=== PATIENT | male | born 1975 | race Caucasian/White ===

== ENCOUNTER 2019-07-11 09:35 | Emergency (ER) | payer BC, SELFPAY ==
--- NOTE | 2019-07-11 09:39 | ED.SKABFB ---
HPI - Skin/Abscess/Foreign Bdy General Stated complaint: Poison [place] Time Seen by Provider: 07/11/19 09:50 Source: patient and RN notes reviewed Mode of arrival: ambulatory Limitations: no limitations History of Present Illness HPI narrative: 43-year-old male presents with concern for rash, possible poison oak. He reports he was exposed to poison oak while pulling timothy, approximately 1 week ago. Reports using calamine lotion with little relief. 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 He reports rash on bilateral forearms that has started to move to his face. He denies any shortness of breath, swelling tongue, swelling lips. complaint: rash Related Data Allergies Allergy/AdvReac Type Severity Reaction Status Date / Time No Known Allergies Allergy Verified 07/11/19 09:59 Review of Systems Review of Systems: Narrative: CONSTITUTIONAL: Denies malaise, chills, sweats, or fever. EYES: Denies visual changes, redness, or discharge. ENT: Denies rhinorrhea, congestion, sinus pain, otalgia or sore throat. CARDIOVASCULAR: Denies chest pain, palpitations, or edema. RESPIRATORY: Denies cough or dyspnea. GASTROINTESTINAL: Denies abdominal pain, nausea, vomiting, diarrhea SKIN: Reports itchy rash on forearms, face MUSCULOSKELETAL: Denies myalgia. NEUROLOGIC: Denies headache. All systems reviewed & are unremarkable except as noted in HPI and below PMFSH Comments At time of signature, agree with nursing past medical, surgical, social and family history. There is no relevant family history pertinent to the presenting complaint Exam Narrative: Exam Narrative: GENERAL: Well-appearing, well-nourished, and in no acute distress. HEAD: Normocephalic EYES: PERRLA, conjunctivae clear ENT: Nares clear. Mucous membranes moist. Oropharynx without edema, erythema or lesions. NECK: Supple. CHEST: No respiratory distress. Clear to auscultation. No bony deformities, no asymmetry. Speaks in full sentences. HEART: Regular rate and rhythm. No murmur heard. SKIN: Warm, dry. Small scaly patches of erythema with minimal vesicles noted to bilateral forearms, less than 3 cm diameter, total of 4 patches. No rash noted to face. NEURO: Alert and oriented x3. PSYCH: Normal mood and affect Course Course Emergency Course: Patient is aware of diagnosis, understands and agrees to treatment plan. Anticipatory guidance given. Patient agrees to follow-up as directed and is aware of reasons to seek care at the emergency department. Portions of this record may have been created with voice recognition software Vital Signs Vital signs: Vital Signs Temperature 99 F 07/11/19 09:40 Pulse Rate 75 07/11/19 09:40 Respiratory Rate 16 07/11/19 09:40 Blood Pressure 123/84 07/11/19 09:40 Pulse Oximetry 98 07/11/19 09:40 Temperature 99 F 07/11/19 09:40 Pulse Rate 75 07/11/19 09:40 Respiratory Rate 16 07/11/19 09:40 Blood Pressure 123/84 07/11/19 09:40 Pulse Oximetry 98 07/11/19 09:40 Reviewed. Pt has been instructed to follow up with his primary care provider within the next week regarding his elevated blood pressure today. MDM - Skin/Abscess/Foreign Bdy MDM Narrative Medical decision making narrative: Does not appear at this time to be erythema multiforme, bullous, SJS, TEN; no evidence at this time to suggest RMSF, endocarditis or Lyme disease; patient looks well, nontoxic and is tolerating oral intake; no neurologic signs or symptoms; no headache, photophobia or neck pain; afebrile; appropriate for initial outpatient treatment; discussed the importance of follow-up, patient agrees; question, viral exanthema, contact dermatitis, allergic dermatitis, eczema, urticaria. No soft palate or uvula edema, no tongue, lip edema or other mucosal involvement, no respiratory compromise, no stridor, no wheezing, no wheezing, no history of syncope, no hypotension, no nausea, vomiting, or diarrhea. Instructed patient to go to nearest ER immediately
[2019-07-11 09:40] VITALS: BP 123/84; PULSE 75; RESP 16; TEMP 37.2; O2SAT 98
[2019-07-11] MEDS: methylPREDNISolone SOD SUCC 125 MG VIAL IM (10:05)
== END 2019-07-11 10:25 | disposition home or self-care (01) ==
PROVIDERS: Emergency Provider Nurse Practitioner; PCP Family Medicine
DX: L25.9 Unspecified contact dermatitis, unspecified cause (principal); R03.0 Elevated blood-pressure reading, without diagnosis of hypertension
CPT/HCPCS: 96372; 99203; G0463; J2930

== ENCOUNTER 2021-06-29 07:24 | Outpatient (CLI) | payer BC, SELFPAY ==
[2021-06-30 09:56] LABS: Hematocrit 51.2 % (42.0-52.0); Hemoglobin 16.8 g/dL (14.0-18.0); Mean Corpuscular HGB Conc 32.8 g/dl (32-36); Mean Corpuscular Hemoglobin 30.7 pg (26-34); Mean Corpuscular Volume 93.4 fl (80-100); Mean Platelet Volume 9.7 fl (7.4-10.4); Platelet Count Result 225 k/mm3 (150-375); Red Blood Count 5.48 M/mm3 (4.6-6.20); Red Cell Distribution Width 13.5 % (11.5-14.5); White Blood Count 6.1 K/mm3 (4.5-10.0)
[2021-06-30 14:54] LABS: Alanine Aminotransferase 36 U/L (6-50); Albumin Level 4.4 g/dL (3.5-5.1); Alkaline Phosphatase 67 U/L (38-126); Anion Gap 8 mmol/L (8-16); Aspartate Amino Transferase 32 U/L (17-59); Bilirubin,Total 0.7 mg/dL (0.2-1.3); Blood Urea Nitrogen 21 mg/dL (9-20); Calcium 8.8 mg/dL (8.4-10.2); Carbon Dioxide 24 mmol/L (22-30); Chloride 103 mmol/L (98-107); Cholesterol 212 mg/dL (0-200); Glucose 107 mg/dL (65-110); HDL Direct 69 mg/dL; Potassium 4.3 mmol/L (3.4-5.0); Sodium 135 mmol/L (137-145); Triglycerides 86 mg/dL (<150)
[2021-06-30 16:12] LABS: LDL Cholesterol Direct 98 mg/dL
[2021-06-30 16:16] LABS: Estimated Glomerular Filt Rate 2
[2021-06-30 16:32] LABS: Prostate Specific Antigen 0.6 ng/mL (< OR = 4.0)
[2021-07-04 10:14] LABS: Testosterone Free 117.3 pg/mL (35.0-155.0); Testosterone Total 747 ng/dL (250-1100)
== END 2021-06-29 07:25 | disposition home or self-care (01) ==
PROVIDERS: PCP Family Medicine; Visit Provider Family Medicine
DX: Z00.00 Encounter for general adult medical examination without abnormal findings (principal); E29.1 Testicular hypofunction; R53.83 Other fatigue; G47.19 Other hypersomnia
CPT/HCPCS: 36415; 80053; 80061; 84153; 84402; 84403; 85027; G0103

== ENCOUNTER 2021-07-07 07:27 | Outpatient (CLI) | payer BC, SELFPAY ==
[2021-07-07 18:57] LABS: Anion Gap 7 mmol/L (8-16); Blood Urea Nitrogen 27 mg/dL (9-20); Calcium 9.4 mg/dL (8.4-10.2); Carbon Dioxide 27 mmol/L (22-30); Chloride 101 mmol/L (98-107); Estimated Glomerular Filt Rate > 60; Glucose 76 mg/dL (65-110); Potassium 4.3 mmol/L (3.4-5.0); Sodium 135 mmol/L (137-145)
== END 2021-07-07 07:28 | disposition home or self-care (01) ==
PROVIDERS: PCP Family Medicine; Visit Provider Family Medicine
DX: R79.89 Other specified abnormal findings of blood chemistry (principal)
CPT/HCPCS: 99199; 36415; 80048

== ENCOUNTER 2021-12-21 12:09 | Outpatient (CLI) | payer BC, SELFPAY ==
[2021-12-22 06:49] LABS: Rapid Plasma Reagin Non-Reactive (NonReactive)
[2021-12-26 10:56] LABS: HIV 1 2 Ag Ab 4th Gen w Rflxs Non-reactive (Non-reactive)
== END 2021-12-21 12:10 | disposition home or self-care (01) ==
PROVIDERS: PCP Family Medicine; Visit Provider Family Medicine
DX: Z71.1 Person with feared health complaint in whom no diagnosis is made (principal)
CPT/HCPCS: 36415; 86592; 87389

== ENCOUNTER 2022-02-06 07:24 | Outpatient (CLI) | payer BC, SELFPAY ==
[2022-02-06 19:05] LABS: Cholesterol 203 mg/dL (0-200); HDL Direct 51 mg/dL; Triglycerides 204 mg/dL (<150)
[2022-02-06 19:07] LABS: Basophils Percent Auto 0.2 % (0.2-1.2); Eosinophils Absolute Auto 0.1 K/mm3 (0-0.3); Eosinophils Percent Auto 2.3 % (0-4.4); Hematocrit 47.5 % (42.0-52.0); Hemoglobin 16.8 g/dL (14.0-18.0); Lymphocytes Absolute Auto 1.13 K/mm3 (0.9-3.2); Lymphocytes Percent Auto 21.6 % (18.3-44.2); Mean Corpuscular HGB Conc 35.4 g/dl (32-36); Mean Corpuscular Hemoglobin 30.2 pg (26-34); Mean Corpuscular Volume 85.3 fl (80-100); Mean Platelet Volume 9.8 fl (7.4-10.4); Monocytes Absolute Auto 0.4 K/mm3 (0.1-0.6); Neutrophils Absolute Auto 3.6 K/mm3 (1.3-6.7); Neutrophils Percent Auto 67.9 % (45.5-73.1); Platelet Count Result 238 k/mm3 (150-375); Red Blood Count 5.57 M/mm3 (4.6-6.20); Red Cell Distribution Width 12.8 % (11.5-14.5); White Blood Count 5.2 K/mm3 (4.5-10.0)
[2022-02-06 19:16] LABS: LDL Cholesterol Direct 77 mg/dL
[2022-02-10 21:27] LABS: Estradiol, Ultrasensitive 14 pg/mL (< OR = 29)
[2022-02-11 21:01] LABS: Testosterone Free 53.6 pg/mL (35.0-155.0); Testosterone Total 443 ng/dL (250-1100)
== END 2022-02-06 07:25 | disposition home or self-care (01) ==
LOC: ANHBWCLAB 07:26
PROVIDERS: PCP Family Medicine; Visit Provider Family Medicine
DX: Z00.00 Encounter for general adult medical examination without abnormal findings (principal); E29.1 Testicular hypofunction
CPT/HCPCS: 36415; 80061; 82670; 84402; 84403; 85025

== ENCOUNTER 2022-11-30 07:05 | Outpatient (CLI) | payer BC, SELFPAY ==
[2022-12-03 16:24] LABS: Testosterone Free 158.6 pg/mL (35.0-155.0); Testosterone Total 979 ng/dL (250-1100)
== END 2022-11-30 07:06 | disposition home or self-care (01) ==
PROVIDERS: PCP Family Medicine; Visit Provider Family Medicine
DX: E29.1 Testicular hypofunction (principal); H10.10 Acute atopic conjunctivitis, unspecified eye; J30.9 Allergic rhinitis, unspecified
CPT/HCPCS: 36415; 84402; 84403

== ENCOUNTER 2022-12-18 13:36 | Emergency (ER) | payer BC, SELFPAY ==
--- NOTE | ~2022-12-18 | XR_ITS ---
EXAMINATION: XR chest 1V DATE: 12/18/2022 14:20 INDICATION: Shortness of breath TECHNIQUE: frontal and lateral views of the chest were obtained. COMPARISON: None FINDINGS: Linear band of likely discoid atelectasis at the lateral left lower lung zone. No other airspace opac ities, pulmonary edema, pleural effusion or pneumothorax. The cardiomediastinal silhouette is normal. Visualized bones and soft tissues are unremarkable. IMPRESSION: 1. Mild linear discoid atelectasis in the left lower lung zone. No other acute cardiopulmonary diseas e. Reviewed, dictated and finalized at location A. IMPRESSION: 1. Mild linear discoid atelectasis in the left lower lung zone. No other acute cardiopulmonary disease.
[2022-12-18 13:41] VITALS: BP 154/89; PULSE 76; RESP 16; TEMP 36.4; O2SAT 99
--- NOTE | 2022-12-18 13:44 | ECG_ITS ---
Measurements Intervals [place] Rate: 74 P: 14 [place]: 154 QRS: -33 QRSD: 97 T: 18 QT: 375 QTc: 417 Interpretive Statements SINUS RHYTHM LEFT AXIS DEVIATION PATTERN CONSISTENT WITH PULMONARY DISEASE BASELINE ARTIFACT- V5 BORDERLINE ECG NO PREVIOUS ECG AVAILABLE FOR COMPARISON Electronically Signed On 12-20-2022 6:31:27 CDT by Oh Montalvo D.O.
--- NOTE | 2022-12-18 13:46 | ED.GENADULT ---
HPI - General Adult General Chief complaint: Unspecified Stated complaint: SOB, dizzy Time Seen by Provider: 12/18/22 19:26 History of Present Illness HPI narrative: Anatoly Rosenthal is a 47 y/o female without any known PMHx who presents with reports of feeling light headed/ dizzy / SOB that started yesterday, he also reports of chest pain when he tries to take a deep breath. He also states that he feels like he is retaining fluid and thinks he has gained about 10LBs in the last 2 weeks. Related Data Home Medications Medication Instructions Recorded Confirmed ascorbic acid (vitamin C) 1,000 mg 1 gm PO DAILY 10/02/19 07/07/21 tablet multivitamin 1 tablet PO DAILY 10/02/19 07/07/21 Allergies Allergy/AdvReac Type Severity Reaction Status Date / Time No Known Allergies Allergy Verified 12/18/22 13:44 [facility] Surgical History Surgical History H/O vasectomy Family History Family History Sibling Cancer Social History Social History Smoking status: Former smoker Tobacco type: cigarettes Alcohol intake: current Substance use type: does not use Lack of Transportation: No Lack of Food: Never True Current Housing: I Have Housing Concerned About Future Housing: No Difficulty Paying Gas/Electric Bills: No Difficulty Paying for Meds: No Currently Unemployed: No Education: High School Diploma/GED Difficulty w/ Childcare or Family Care: No Course Vital Signs Vital signs: Vital Signs Temperature 36.4 C 12/18/22 13:41 Pulse Rate 76 12/18/22 13:41 Respiratory Rate 16 12/18/22 13:41 Blood Pressure 154/89 H 12/18/22 13:41 Pulse Oximetry 99 12/18/22 13:41 Oxygen Delivery Room Air 12/18/22 13:41 Temperature 36.4 C 12/18/22 13:41 Pulse Rate 70 12/18/22 20:07 Respiratory Rate 19 12/18/22 20:07 Blood Pressure 148/79 H 12/18/22 20:07 Pulse Oximetry 98 12/18/22 20:07 Oxygen Delivery Room Air 12/18/22 13:41 Medical Decision Making Vital Signs Vital Signs: Vital Signs Temperature 36.4 C 12/18/22 13:41 Pulse Rate 76 12/18/22 13:41 Respiratory Rate 16 12/18/22 13:41 Blood Pressure 154/89 H 12/18/22 13:41 Pulse Oximetry 99 12/18/22 13:41 Oxygen Delivery Room Air 12/18/22 13:41 Temperature 36.4 C 12/18/22 13:41 Pulse Rate 70 12/18/22 20:07 Respiratory Rate 19 12/18/22 20:07 Blood Pressure 148/79 H 12/18/22 20:07 Pulse Oximetry 98 12/18/22 20:07 Oxygen Delivery Room Air 12/18/22 13:41 Lab Data 12/18/22 13:52 12/18/22 13:52 Labs: Lab Results 12/18/22 12/18/22 Range/Units 13:52 18:12 WBC 5.7 (4.5-10.0) K/mm3 RBC 5.82 (4.6-6.20) M/mm3 Hgb 17.3 (14.0-18.0) g/dL Hct 49.9 (42.0-52.0) % MCV 85.7 (80-100) fl MCH 29.7 (26-34) pg MCHC 34.7 (32-36) g/dl RDW 12.9 (11.5-14.5) % Plt Count 204 (150-375) k/mm3 MPV 8.8 (7.4-10.4) fl Immature Gran % (Auto) 0.2 (0-0.5) % Neut % (Auto) 60.3 (45.5-73.1) % Lymph % (Auto) 26.0 (18.3-44.2) % Wallace % (Auto) 9.4 H (2.6-8.5) % Eos % (Auto) 3.8 (0-4.4) % Baso % (Auto) 0.3 (0.2-1.2) % Lymph # (Auto) 1.49 (0.9-3.2) K/mm3 Wallace # (Auto) 0.5 (0.1-0.6) K/mm3 Eos # (Auto) 0.2 (0-0.3) K/mm3 Baso # (Auto) 0.0 (0.0-0.1) K/mm3 Abs Immat Gran (auto) 0.01 (0.00-0.031) K/mm3 Absolute Neuts (auto) 3.5 (1.3-6.7) K/mm3 Absolute Nucleated RBC 0.0 (0.0-0.012) K/mm3 Nucleated RBC % 0.0 (0.0-0.2) % D-Dimer 0.32 (<0.48) ug/mL Sodium 133 L (137-145) mmol/L Potassium 4.0 (3.4-5.0) mmol/L Chloride 102 (98-107) mmol/L Carbon Dioxide 23 (22-30) mmol/L Anion Gap 8 (8-16) mmol/L BUN 20 (9-20) mg/dL Creatinine 0.80 (0.7-1.3) mg/dL Estim Creat Clear Calc 100 ml/min Estimated GF
[2022-12-18 13:58] LABS: Basophils Percent Auto 0.3 % (0.2-1.2); Eosinophils Absolute Auto 0.2 K/mm3 (0-0.3); Eosinophils Percent Auto 3.8 % (0-4.4); Hematocrit 49.9 % (42.0-52.0); Hemoglobin 17.3 g/dL (14.0-18.0); Immature Granulocyte Absolute 0.01 K/mm3 (0.00-0.031); Immature Granulocyte Percent A 0.2 % (0-0.5); Lymphocytes Absolute Auto 1.49 K/mm3 (0.9-3.2); Mean Corpuscular HGB Conc 34.7 g/dl (32-36); Mean Corpuscular Hemoglobin 29.7 pg (26-34); Mean Corpuscular Volume 85.7 fl (80-100); Mean Platelet Volume 8.8 fl (7.4-10.4); Monocytes Absolute Auto 0.5 K/mm3 (0.1-0.6); Monocytes Percent Auto 9.4 % (2.6-8.5); Neutrophils Absolute Auto 3.5 K/mm3 (1.3-6.7); Neutrophils Percent Auto 60.3 % (45.5-73.1); Platelet Count Result 204 k/mm3 (150-375); Red Blood Count 5.82 M/mm3 (4.6-6.20); Red Cell Distribution Width 12.9 % (11.5-14.5); White Blood Count 5.7 K/mm3 (4.5-10.0)
--- NOTE | 2022-12-18 13:58 | PC.NURSE ---
Paris, nurse, at [facility] in [place] verbalized over the phone that patient's COVID/Flu swab at their facility today was NEGATIVE. ED MARISOL made aware. VORB to cancel COVID swab ordered here.
[2022-12-18 14:08] LABS: Alanine Aminotransferase 48 U/L (6-50); Albumin Level 4.7 g/dL (3.5-5.1); Alkaline Phosphatase 61 U/L (38-126); Anion Gap 8 mmol/L (8-16); Aspartate Amino Transferase 39 U/L (17-59); Bilirubin,Total 0.7 mg/dL (0.2-1.3); Blood Urea Nitrogen 20 mg/dL (9-20); Calcium 9.5 mg/dL (8.4-10.2); Carbon Dioxide 23 mmol/L (22-30); Chloride 102 mmol/L (98-107); Estimated CRCL calculation 100 ml/min; Estimated Glomerular Filt Rate > 60; Glucose 95 mg/dL (65-110); Sodium 133 mmol/L (137-145)
[2022-12-18 14:19] LABS: NT Pro B Type Natriuretic Pept < 20 pg/mL (19.9-100); Troponin I < 0.012 ng/mL (0.000-0.034)
[2022-12-18 14:20] LABS: D Dimer 0.32 ug/mL (<0.48)
[2022-12-18 18:50] LABS: Troponin I 0.013 ng/mL (0.000-0.034)
--- NOTE | 2022-12-18 19:30 | ED.GENADULT ---
HPI - General Adult General Chief complaint: Unspecified Stated complaint: SOB, dizzy Time Seen by Provider: 12/18/22 19:26 History of Present Illness HPI narrative: This is a 47-year-old male presenting to ED with multiple complaints. Patient says her on since Sunday he has been experience combination of chest pain shortness of breath and intermittent dizziness. He describes the chest pain is an achy pain across his chest that is worse with deep breaths. He has never had pain like this before. It is not exacerbated by exercise. no nausea vomiting or diaphoresis. Patient said over the weekend he had an episode of dyspnea while he was speaking to someone. Those symptoms have since resolved. He also says that he is occasionally getting a little dizzy when he stands up/moves around. he is not currently having these symptoms. Patient notes that he is under a massive amount of stress. at home. He says that all of his symptoms seem to be worsened by stress. He has never been diagnosed with anxiety or depression. Related Data Home Medications Medication Instructions Recorded Confirmed ascorbic acid (vitamin C) 1,000 mg 1 gm PO DAILY 10/02/19 07/07/21 tablet multivitamin 1 tablet PO DAILY 10/02/19 07/07/21 Allergies Allergy/AdvReac Type Severity Reaction Status Date / Time No Known Allergies Allergy Verified 12/18/22 13:44 [facility] Surgical History Surgical History H/O vasectomy Family History Family History Sibling Cancer Social History Social History Smoking status: Former smoker Tobacco type: cigarettes Alcohol intake: current Substance use type: does not use Lack of Transportation: No Lack of Food: Never True Current Housing: I Have Housing Concerned About Future Housing: No Difficulty Paying Gas/Electric Bills: No Difficulty Paying for Meds: No Currently Unemployed: No Education: High School Diploma/GED Difficulty w/ Childcare or Family Care: No Exam Narrative: APPEARANCE: No apparent distress. pleasant and polite Head: atraumatic. EYES: EOMI, NOSE: Atraumatic NECK: Trachea midline RESPIRATORY: No increased rate of breathing , clear to auscultation CARDIOVASCULAR: RRR, no peripheral edema ABDOMINAL: Non-distended soft nontender MUSCULOSKELETAl: No obvious deformities NEURO: Alert. Moving 4/4 extremities SKIN:: Warm, dry. Normal color PSYCHIATRIC: Normal affect Course Vital Signs Vital signs: Vital Signs Temperature 97.6 F 12/18/22 13:41 Pulse Rate 76 12/18/22 13:41 Respiratory Rate 16 12/18/22 13:41 Blood Pressure 154/89 H 12/18/22 13:41 Pulse Oximetry 99 12/18/22 13:41 Oxygen Delivery Room Air 12/18/22 13:41 Temperature 97.6 F 12/18/22 13:41 Pulse Rate 76 12/18/22 13:41 Respiratory Rate 16 12/18/22 13:41 Blood Pressure 154/89 H 12/18/22 13:41 Pulse Oximetry 99 12/18/22 13:41 Oxygen Delivery Room Air 12/18/22 13:41 Medical Decision Making MDM Narrative Medical decision making narrative: -Course: 47-year-old male presenting with multiple symptoms. His workup including troponin D-dimer BNP chest x-ray and EKG were all negative. By the time I interviewed the patient he says his symptoms have resolved he is ready to go home. Patient has been discharged with instructions to follow-up with his primary care physician for further management. 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 He lives with his and step children. -Independent interpretation of studies: Independent EKG interpretation: Rhythm [sinus], Rate 74, [place] -[leftward], [place] -[normal], QRS [narrow], QTC [khris
[2022-12-18 20:07] VITALS: BP 148/79; PULSE 70; RESP 19; O2SAT 98
== END 2022-12-18 20:08 | disposition home or self-care (01) ==
PROVIDERS: Nurse Practitioner Family; Emergency Provider Emergency Medicine; PCP Family Medicine
DX: R07.9 Chest pain, unspecified (principal); R06.00 Dyspnea, unspecified; F43.9 Reaction to severe stress, unspecified; Z87.891 Personal history of nicotine dependence
CPT/HCPCS: 36415; 71045; 80053; 83880; 84484; 85025; 85380; 93005; 99284

== ENCOUNTER 2023-06-12 07:06 | Outpatient (CLI) | payer BC, SELFPAY ==
[2023-06-12 18:58] LABS: Hematocrit 49.2 % (42.0-52.0); Hemoglobin 16.4 g/dL (14.0-18.0); Mean Corpuscular HGB Conc 33.3 g/dl (32-36); Mean Corpuscular Hemoglobin 29.7 pg (26-34); Mean Platelet Volume 9.9 fl (7.4-10.4); Platelet Count Result 198 k/mm3 (150-375); Red Blood Count 5.53 M/mm3 (4.6-6.20); Red Cell Distribution Width 13.3 % (11.5-14.5); White Blood Count 3.9 K/mm3 (4.5-10.0)
[2023-06-12 19:06] LABS: Alanine Aminotransferase 34 U/L (6-50); Albumin Level 4.5 g/dL (3.5-5.1); Alkaline Phosphatase 63 U/L (38-126); Anion Gap 7 mmol/L (4-12); Aspartate Amino Transferase 48 U/L (17-59); Bilirubin,Total 0.8 mg/dL (0.2-1.3); Blood Urea Nitrogen 22 mg/dL (9-20); Calcium 9.6 mg/dL (8.4-10.2); Carbon Dioxide 25 mmol/L (22-30); Chloride 106 mmol/L (98-107); Estimated Glomerular Filt Rate > 60; Glucose 101 mg/dL (65-110); Potassium 4.2 mmol/L (3.4-5.0); Sodium 138 mmol/L (137-145)
[2023-06-12 19:31] LABS: Prostate Specific Antigen 0.6 ng/mL (< OR = 4.0)
[2023-06-16 17:04] LABS: Testosterone Free 39.4 pg/mL (35.0-155.0); Testosterone Total 353 ng/dL (250-1100)
== END 2023-06-12 07:07 | disposition home or self-care (01) ==
LOC: ANHBWCLAB 07:08
PROVIDERS: PCP Family Medicine; Visit Provider Family Medicine
DX: Z00.00 Encounter for general adult medical examination without abnormal findings (principal); E29.1 Testicular hypofunction; G47.19 Other hypersomnia; R53.83 Other fatigue; Z12.5 Encounter for screening for malignant neoplasm of prostate
CPT/HCPCS: 36415; 80053; 84153; 84402; 84403; 85027; G0103

== ENCOUNTER 2023-12-05 00:41 | Inpatient (IN) | payer BC, SELFPAY ==
[2023-12-05] VITALS (16 sets, daily range): BP systolic 95–133; BP diastolic 67–97; PULSE 73–103; RESP 12–22; TEMP 36.1–38.2; O2SAT 94–100
--- NOTE | ~2023-12-05 | CT_ITS ---
CT of the Abdomen and Pelvis: Indication: Abdominal pain Technique: 2.5 mm axial scans were obtained through the abdomen and pelvis following intravenous adm inistration of 100 cc of Omnipaque 350. Dose reduction technique was used on this scan by utilizing a utomated exposure control and iterative reconstruction technique. The dose-length product (DLP) was 5 31.89 mGy-cm. Findings: Scans through the lung bases are unremarkable. The liver, spleen, pancreas, gallbladder, adrenals and kidneys are within normal limits. No evidence of aortic aneurysm. No lymphadenopathy. No bowel obstruction. Appendix is dilated to 14 mm with extensive periappendiceal inflammatory change . No abscess or free air.. Images through the pelvis were performed. Urinary bladder unremarkable. Prostate gland and seminal ve sicles are unremarkable. No ascites. Impression: Acute appendicitis, as detailed above. No abscess or free air. Reviewed, dictated and finalized at [facility]. Impression: Acute appendicitis, as detailed above. No abscess or free air.
--- NOTE | 2023-12-05 01:02 | ECG_ITS ---
Test Date: 2023-12-05 01:05:12 Measurements Intervals [place] Rate: 92 P: 9 VA: 141 QRS: -40 QRSD: 103 T: 32 QT: 354 QTc: 438 Interpretive Statements SINUS RHYTHM MARKED LEFT AXIS DEVIATION [QRS AXIS < -30] INCOMPLETE RIGHT BUNDLE BRANCH BLOCK [90+ ms QRS DURATION, TERMINAL R IN V1/V2, 40+ ms S IN I/aVL/V4/V5/V6] No previous ECG available for comparison Electronically Signed On 12-05-2023 09:47:53 CDT by Tk Zee M.D.
[2023-12-05] MEDS: ONDANSETRON INJ 4 MG/2 ML VIAL IV PUSH ×2 (01:07→06:38)
[2023-12-05] MEDS: MORPHINE SULFATE (*CRX) 4 MG/ML INJ IV PUSH ×4 (01:07→10:52)
[2023-12-05 01:11] LABS: Basophils Percent Auto 0.3 % (0.2-1.2); Eosinophils Absolute Auto 0.1 K/mm3 (0-0.3); Eosinophils Percent Auto 0.8 % (0-4.4); Hematocrit 48.6 % (42.0-52.0); Hemoglobin 17.5 g/dL (14.0-18.0); Immature Granulocyte Absolute 0.06 K/mm3 (0.00-0.031); Immature Granulocyte Percent A 0.5 % (0-0.5); Lymphocytes Absolute Auto 1.04 K/mm3 (0.9-3.2); Mean Platelet Volume 9.2 fl (7.4-10.4); Monocytes Absolute Auto 0.8 K/mm3 (0.1-0.6); Monocytes Percent Auto 7.2 % (2.6-8.5); Neutrophils Absolute Auto 9.5 K/mm3 (1.3-6.7); Neutrophils Percent Auto 82.2 % (45.5-73.1); Platelet Count Result 222 k/mm3 (150-375); Red Blood Count 5.65 M/mm3 (4.6-6.20); Red Cell Distribution Width 12.5 % (11.5-14.5); White Blood Count 11.5 K/mm3 (4.5-10.0)
--- NOTE | 2023-12-05 01:12 | ED.ABDPAIN ---
HPI - Abdominal Pain General Chief Complaint: Abdominal Pain Stated Complaint: abdominal pain Time Seen by Provider: 12/05/23 00:47 History of Present Illness HPI narrative: Patient is a 48-year-old male who presents to the emergency department this evening complaining of generalized abdominal pain which started around 430 this afternoon. Patient states that approximately 2 weeks ago he noticed that he was not having frequent bowel movements and thought that he might be constipated so he started taking laxatives and doing home enema as with no improvement of his symptoms. Patient states that he will have a very small bowel movement every once in a while which is unusual for him. Patient admits to nausea but denies any vomiting episodes, denies any chest pain or shortness of breath, denies any fevers or chills. Patient also denies any similar symptoms in the past. There are no additional modifying, alleviating, or precipitating factors at this time. Related Data Home Medications Medication Instructions Recorded Confirmed ascorbic acid (vitamin C) 1,000 mg 1 gm PO DAILY 10/02/19 07/07/21 tablet multivitamin 1 tablet PO DAILY 10/02/19 07/07/21 Allergies Allergy/AdvReac Type Severity Reaction Status Date / Time No Known Allergies Allergy Verified 12/05/23 01:32 Review of Systems Review of Systems: All systems are reviewed and are negative unless stated otherwise in the HPI. [facility] Surgical History Surgical History H/O vasectomy Family History Family History Sibling Cancer Social History Social History Smoking status: Former smoker Tobacco type: cigarettes Alcohol intake: current Substance use type: does not use Lack of Transportation: No Lack of Food: Never True Current Housing: I Have Housing Concerned About Future Housing: No Difficulty Paying Gas/Electric Bills: No Difficulty Paying for Meds: No Currently Unemployed: No Education: High School Diploma/GED Difficulty w/ Childcare or Family Care: No Exam Narrative: General: Alert, awake, afebrile, in severe distress. HEENT: PERRL, no rhinorrhea, no post nasal drip, oropharynx clear. Cardiovascular: Regular rate and rhythm, no murmurs, rubs or gallops, no peripheral edema. Respiratory: Clear to auscultation bilaterally, no tachypnea, no wheezing, no rhonchi, no rubs, no respiratory distress. Abdomen: Soft, tenderness to palpation over the mid abdomen and bilateral lower quadrant worse in the right lower quadrant, distended, no rebound, no guarding, no peritoneal signs. Musculoskeletal: No joint swelling or deformity, normal muscle tone. Skin: No rashes or petechia, no signs of infection. Neurological: Alert and oriented to person, place, and time. Follows all commands. No focal deficits, speech is clear and fluent. Course Vital Signs Vital signs: Vital Signs Temperature 97.5 F L 12/05/23 00:47 Pulse Rate 94 12/05/23 00:47 Respiratory Rate 22 H 12/05/23 00:47 Blood Pressure 130/97 H 12/05/23 00:47 Pulse Oximetry 100 12/05/23 00:47 Oxygen Delivery Room Air 12/05/23 00:47 Temperature 97.5 F L 12/05/23 00:47 Pulse Rate 86 12/05/23 02:27 Respiratory Rate 14 12/05/23 02:27 Blood Pressure 132/91 H 12/05/23 02:27 Pulse Oximetry 97 12/05/23 02:27 Oxygen Delivery Room Air 12/05/23 00:47 MDM - Abdominal Pain MDM Narrative Medical decision making narrative: The patient was evaluated by myself in the emergency department. History is obtained from patient who is an independent historian and physical exam was performed. External medical records were reviewed at this time. IV was established and pertinent tests were ordered. Patient was administered 1 L IV fluid bolus with normal saline, 4 mg IV Zofran for nausea and 8
[2023-12-05 01:21] LABS: Alanine Aminotransferase 43 U/L (6-50); Albumin Level 5.1 g/dL (3.5-5.1); Alkaline Phosphatase 92 U/L (38-126); Anion Gap 12 mmol/L (4-12); Aspartate Amino Transferase 37 U/L (17-59); Bilirubin,Total 1.1 mg/dL (0.2-1.3); Blood Urea Nitrogen 20 mg/dL (9-20); Calcium 10.2 mg/dL (8.4-10.2); Carbon Dioxide 27 mmol/L (22-30); Chloride 97 mmol/L (98-107); Estimated CRCL calculation 81 ml/min; Estimated Glomerular Filt Rate > 60; Glucose 190 mg/dL (65-110); Lipase 1011 U/L (23-300); Potassium 3.4 mmol/L (3.4-5.0); Sodium 136 mmol/L (137-145)
[2023-12-05] MEDS: SODIUM CHLORIDE 0.9% IV 1,000 ML 999 ML IV CONT (01:22)
[2023-12-05] MEDS: LACTATED RINGERS 1,000 ML 999 ML IV CONT (02:27)
[2023-12-05 02:37] LABS: Add Urine Microscopic? NO; Appearance Urine Clear (Clear); Bilirubin Urine Negative (Negative); Blood Urine Negative (Negative); Color Urine Yellow (Yellow); Glucose Urine UA 1+ mg/dL (Negative); Ketones Urine 1+ mg/dL (Negative); Leukocyte Esterase Ur Negative LEU/UL (Negative); Nitrate Urine Negative (Negative); Protein Urine Negative (Negative); Specific Grav Ur > 1.045 (1.001-1.035); Urobilinogen Urine 0.2 mg/dL (<2.0); pH Urine 7.5 (5.0-9.0)
[2023-12-05 02:45] LABS: Lactic Acid Reflex 1.4 mmol/L (0.7-2.0)
[2023-12-05 02:46] LABS: Magnesium 2.7 mg/dL (1.6-2.3)
[2023-12-05] MEDS: PIPERACILLIN/TAZ 4.5G/NS 100ML 4.5 GM/100 ML BAG IVPB (03:11)
[2023-12-05] MEDS: HYDROmorphone HCL INJ (*CRX) 1 MG/ML SYR 0.5 MG IV PUSH (03:12)
[2023-12-05] MEDS: LACTATED RINGERS 1,000 ML 125 ML IV CONT (04:36)
--- NOTE | 2023-12-05 07:30 | PM.IMHP ---
H&P: HPI History of Present Illness Date/Time: 12/05/23 07:30 Chief Complaint: Right lower quadrant pain Narrative: This is a 48-year-old man who presented to the emergency right lower quadrant pain. He began experiencing pain described as a vague pain from his sternum all the way down to the lower abdomen. He denied any fevers this. The pain gradually became worse is more localized to the right lower quadrant. He was experiencing nausea and dry heaves. He tried taken some laxatives to improved pain did not help. He has never had any pain like this in the past. In the emergency department he was noted to have an elevated white count and CT showed evidence of acute appendicitis. Review of Systems Review of Systems: All systems reviewed & are unremarkable except as noted in HPI and below Eyes: Eyes: Denies change in vision ENT: Denies hearing loss, Denies neck pain and Denies sore throat Cardiovascular: Cardiovascular: Denies chest pain and Denies dyspnea Respiratory: Respiratory: Denies cough, Denies dyspnea and Denies wheezing Gastrointestinal: Gastrointestinal: Reports as per HPI Genitourinary: Genitourinary: Denies hematuria and Denies dysuria Musculoskeletal: Musculoskeletal: Denies arthralgias, Denies joint swelling and Denies neck pain Allergic/Immunologic: Allergic/Immunologic: Denies wheezing PMFSH Surgical History Surgical History H/O vasectomy Family History Family History Sibling Cancer Social History Social History Smoking status: Former smoker Alcohol intake: current Drinks per week: 4 Substance use type: does not use Do You Feel Safe in your Home?: Yes Lack of Transportation: No Lack of Food: Never True Current Housing: I Have Housing Concerned About Future Housing: No Difficulty Paying Gas/Electric Bills: No Difficulty Paying for Meds: No Currently Unemployed: No Education: High School Diploma/GED Difficulty w/ Childcare or Family Care: No Spiritual care concerns: No Meds Home Medications and Allergies Home Medications Medication Instructions Recorded Confirmed Type multivitamin 1 tablet PO DAILY 10/02/19 12/05/23 History syringe with needle 3 mL 23 x 1 #8 ea 11/27/22 12/05/23 Rx (BD Eclipse Luer-Katlin) omeprazole 20 mg capsule,delayed 20 mg PO DAILY #90 caps 06/11/23 12/05/23 Rx release needle (disp) 25 gauge 25 gauge x See Rx Instructions .Route 08/08/23 12/05/23 Rx 1 (BD PrecisionGlide) .COMPLEX #12 ea escitalopram oxalate 10 mg tablet 10 mg PO DAILY #90 tabs 09/19/23 12/05/23 Rx (Lexapro) needle (disp) 18 G 18 gauge x 1 #8 units 10/03/23 12/05/23 Rx (BD Regular Bevel [place]) testosterone cypionate 200 mg/mL 100 mg (0.5 mL) IM .q2week #10 mL 10/24/23 12/05/23 Rx intramuscular oil cetirizine 10 mg tablet (Zyrtec) 10 mg PO DAILY PRN allergies 12/05/23 12/05/23 History fluticasone propionate 50 2 spray intranasal DAILY PRN 12/05/23 12/05/23 History mcg/actuation nasal allergies spray,suspension (Flonase Allergy Relief) trazodone 50 mg tablet 50 mg PO HS 12/05/23 12/05/23 History Allergies Allergy/AdvReac Type Severity Reaction Status Date / Time No Known Allergies Allergy Verified 12/05/23 01:32 Vital Signs Vital Signs - 24 hr 12/05/23 00:47 12/05/23 02:27 12/05/23 03:58 Temperature 97.5 F L Pulse Rate 94 86 92 Respiratory Rate 22 H 14 17 Blood Pressure 130/97 H 132/91 H 133/81 Pulse Oximetry 100 97 98 Oxygen Delivery Room Air 12/05/23 04:28 Temperature 98.2 F Pulse Rate 82 Respiratory Rate 18 Blood Pressure 127/77 Pulse Oximetry 100 Oxygen Delivery Exam Const: General: alert; No acute distress Orientation/consciousness: patient oriented x3 Limitations: no limitations HENMT: Head: normocephalic and atra
--- NOTE | 2023-12-05 07:35 | WPDHPUPDATE1 ---
History and Physical Update Update Date/Time: 12/05/23 07:35 History and Physical has been reviewed, including an updated exam of the patient. There are NO changes in the patient's condition. Risks, benefits, and alternatives have been discussed and questions answered. Patient agrees to proceed with procedure.
[2023-12-05] MEDS: IBUPROFEN IV 800 MG/200 ML 800 MG/200 ML BAG 400 MG IVPB ×2 (08:10→13:06)
[2023-12-05] MEDS: PIPERACILLN/TAZ 3.375GM/NS50ML 3.375 GM/50 ML BAG IVPB ×3 (09:31→20:21)
[2023-12-05] MEDS: LACTATED RINGERS 1,000 ML 30 ML IV CONT ×2 (13:00→14:55)
--- NOTE | 2023-12-05 13:22 | WPDANESEPPF ---
Anes - Initial Pre Proc Eval Procedure: Operation Date: 12/05/23 15:00 Proposed Procedures p Laparoscopic Appendectomy - Kee Loyola DO Date/Time: 12/05/23 13:22 Surgeon: Kee Loyola DO Pre Op Diagnosis: Acute appendicitis Patient Data Age: 48 Gender: M Height: 1.75 m Weight: 81.81 kg Last Vital Signs Temp 98.2 F 12/05/23 04:28 Pulse 82 12/05/23 04:28 Resp 18 12/05/23 04:28 BP 127/77 12/05/23 04:28 Pulse Ox 95 12/05/23 07:37 O2 Del Method Room Air 12/05/23 08:14 Allergies Allergy/AdvReac Type Severity Reaction Status Date / Time No Known Allergies Allergy Verified 12/05/23 01:32 Home Medications Medication Instructions Recorded Confirmed Type multivitamin 1 tablet PO DAILY 10/02/19 12/05/23 History syringe with needle 3 mL 23 x 1 #8 ea 11/27/22 12/05/23 Rx (BD Eclipse Luer-Katlin) omeprazole 20 mg capsule,delayed 20 mg PO DAILY #90 caps 06/11/23 12/05/23 Rx release needle (disp) 25 gauge 25 gauge x See Rx Instructions .Route 08/08/23 12/05/23 Rx 1 (BD PrecisionGlide) .COMPLEX #12 ea escitalopram oxalate 10 mg tablet 10 mg PO DAILY #90 tabs 09/19/23 12/05/23 Rx (Lexapro) needle (disp) 18 G 18 gauge x 1 #8 units 10/03/23 12/05/23 Rx (BD Regular Bevel [place]) testosterone cypionate 200 mg/mL 100 mg (0.5 mL) IM .q2week #10 mL 10/24/23 12/05/23 Rx intramuscular oil cetirizine 10 mg tablet (Zyrtec) 10 mg PO DAILY PRN allergies 12/05/23 12/05/23 History fluticasone propionate 50 2 spray intranasal DAILY PRN 12/05/23 12/05/23 History mcg/actuation nasal allergies spray,suspension (Flonase Allergy Relief) trazodone 50 mg tablet 50 mg PO HS 12/05/23 12/05/23 History Laboratory Tests 12/05/23 12/05/23 00:56 02:24 WBC 11.5 H K/mm3 (4.5-10.0) RBC 5.65 M/mm3 (4.6-6.20) Hgb 17.5 g/dL (14.0-18.0) Hct 48.6 % (42.0-52.0) MCV 86.0 fl (80-100) MCH 31.0 pg (26-34) MCHC 36.0 g/dl (32-36) RDW 12.5 % (11.5-14.5) Plt Count 222 k/mm3 (150-375) MPV 9.2 fl (7.4-10.4) Immature Gran % (Auto) 0.5 % (0-0.5) Neut % (Auto) 82.2 H % (45.5-73.1) Lymph % (Auto) 9.0 L % (18.3-44.2) [place] % (Auto) 7.2 % (2.6-8.5) Eos % (Auto) 0.8 % (0-4.4) Baso % (Auto) 0.3 % (0.2-1.2) Lymph # (Auto) 1.04 K/mm3 (0.9-3.2) [place] # (Auto) 0.8 H K/mm3 (0.1-0.6) Eos # (Auto) 0.1 K/mm3 (0-0.3) Baso # (Auto) 0.0 K/mm3 (0.0-0.1) Abs Immat Gran (auto) 0.06 H K/mm3 (0.00-0.031) Absolute Neuts (auto) 9.5 H K/mm3 (1.3-6.7) Absolute Nucleated RBC 0.000 K/mm3 (0.0-0.012) Nucleated RBC % 0.0 % (0.0-0.2) Sodium 136 L mmol/L (137-145) Potassium 3.4 mmol/L (3.4-5.0) Chloride 97 L mmol/L (98-107) Carbon Dioxide 27 mmol/L (22-30) Anion Gap 12 mmol/L (4-12) BUN 20 mg/dL (9-20) Creatinine 1.00 mg/dL (0.7-1.3) Estim Creat Clear Calc 81 ml/min Estimated GFR > 60 (59 - ) Glucose 190 H mg/dL (65-110) Lactic Acid 1.4 mmol/L (0.7-2.0) Calcium 10.2 mg/dL (8.4-10.2) Magnesium 2.7 H mg/dL (1.6-2.3) Total Bilirubin 1.1 mg/dL (0.2-1.3) AST 37 U/L (17-59) ALT 43 U/L (6-50) Alkaline Phosphatase 92 U/L (38-126) Total Protein 9.0 H g/dL (6.3-8.2) Albumin 5.1 g/dL (3.5-5.1) Lipase 1011 H U/L (23-300) Urine Color Yellow (Yellow) Urine Appearance Clear (Clear) Urine pH 7.5 (5.0-9.0) Ur Specific [place] > 1.045 H (1.001-1.035) Urine Protein Negative mg/dL (Negative) Urine Glucose (UA) 1+ H mg/dL (Negative) Urine Ketones 1+ H mg/dL (Negative) Ur Blood (Man) Negative (Negative) Urine Nitrate Negative (Negative) Urine Bilirubin Negativ
[2023-12-05] MEDS: BUPIVACAINE/EPINEPHRINE 0.5% 10 ML VIAL 30 ML INFILTRATE (14:13)
--- NOTE | 2023-12-05 14:46 | W.PM.PROC2 ---
Procedure Note - Detailed Date of Procedure 12/05/23 Pre-op Diagnosis Acute appendicitis Post-op Diagnosis Other (Acute perforated appendicitis) Procedure Performed Laparoscopic appendectomy Surgeon Kee Loyola, DO Anesthesia General and Local (0.5% bupivicaine with epinephrine) Indications This is a 48-year-old man who presented to the emergency department overnight with right lower quadrant abdominal pain. He had been experiencing some vague abdominal pains for about 7 days but then these continued to worsen and localized to the right lower quadrant. In the emergency department he was found to have evidence of acute appendicitis on CT and his white blood count was elevated. He was admitted for further treatment. He was started on IV Zosyn. Discussions were made with the patient about treatment options and decision was made to proceed with laparoscopic appendectomy, possible open. Findings Laparoscopic appendectomy was performed. The appendix was identified and appeared very indurated and there did appear to be full-thickness necrosis of the wall of the appendix causing a perforation. The base of the appendix appeared healthy and viable. There was some scant purulence fluid right around the appendix and in the pelvis, but no organized abscess. The appendix was removed and sent to the lab for pathology. I then irrigated the pelvis and right lower quadrant with about 1 L of sterile saline. Description of Procedure Procedure as well as risks, benefits, and alternatives were explained to the patient. The patient agreed to proceed. Written consent was obtained and placed in chart prior to procedure. The patient was brought back to surgical suite. He was placed supine on operating table. Time-out was done to confirm the patient and procedure. The patient was then intubated by the Anesthesia Department. His abdomen was prepped and draped in sterile fashion using chlorhexidine prep. A 5 mm incision was made just to the left of the patient's umbilicus and a 5 mm Optiview trocar was advanced through the abdominal layers under direct visualization. Once inside the peritoneal cavity, carbon dioxide insufflation was used to create a pneumoperitoneum. The camera was inserted and the abdomen was inspected. No immediate abnormalities were identified. The patient was then placed in slight Trendelenburg position and rotated to the left. A 5 mm incision was made in the suprapubic region in midline and a 5 mm trocar was inserted under direct visualization. A 12 mm incision was made in the left lower quadrant and a 12 mm trocar was inserted under direct visualization. The right lower quadrant was carefully inspected. The cecum was identified and then this was traced back to the appendix. The appendix was identified and grasped at the mesoappendix and lifted anteriorly. Careful blunt dissection was carried out at the base of the appendix through the mesoappendix using a [place] grasper. An Endo-KISHAN 45 mm blue load stapler was then advanced across the base of the appendix and clamped and fired. A white reload was then clamped across the mesoappendix and fired. This freed up our appendix completely. It was then placed in an EndoCatch bag and removed through the left lower quadrant port. The staple lines were then inspected. Hemostasis appeared adequate and the staple lines appeared secure. The area was then irrigated with sterile saline. The pelvis was then carefully inspected and irrigated with sterile saline as well and the remainder of the abdomen was carefully inspected. The patient was then flattened out in bed. One final inspection was made around the abdominal cavity and no other abnormalities were seen. The left lower quadrant port was removed and a Zion-Lillie cone was used to approximate the fascia with an 0 Vicryl simple interrupted suture. The remaining ports were then removed under direct visualization. The camera was removed and the p
[2023-12-05] MEDS: LACTATED RINGERS 1,000 ML 100 ML IV CONT (15:57)
[2023-12-05] MEDS: traZODone HCL 50 MG TABLET PO (20:21)
[2023-12-05] MEDS: HYDROcodone/acetaminophen (*CRX) 5-325 MG TABLET 1 TAB PO (20:27)
[2023-12-06 01:14] VITALS: BP 109/63; PULSE 93; RESP 16; TEMP 36.3; O2SAT 98
[2023-12-06] MEDS: PIPERACILLN/TAZ 3.375GM/NS50ML 3.375 GM/50 ML BAG IVPB ×2 (03:42→08:22)
[2023-12-06] MEDS: HYDROcodone/acetaminophen (*CRX) 5-325 MG TABLET 1 TAB PO ×2 (03:45→13:05)
[2023-12-06 05:35] VITALS: BP 107/65; PULSE 81; RESP 16; TEMP 37; O2SAT 96
[2023-12-06 06:45] LABS: Hematocrit 41.8 % (42.0-52.0); Hemoglobin 14.3 g/dL (14.0-18.0); Mean Corpuscular HGB Conc 34.2 g/dl (32-36); Mean Corpuscular Volume 87.8 fl (80-100); Mean Platelet Volume 9.4 fl (7.4-10.4); Platelet Count Result 189 k/mm3 (150-375); Red Blood Count 4.76 M/mm3 (4.6-6.20); Red Cell Distribution Width 12.5 % (11.5-14.5); White Blood Count 9.3 K/mm3 (4.5-10.0)
[2023-12-06 06:58] LABS: Anion Gap 7 mmol/L (4-12); Blood Urea Nitrogen 8 mg/dL (9-20); Carbon Dioxide 29 mmol/L (22-30); Chloride 100 mmol/L (98-107); Estimated CRCL calculation 89 ml/min; Estimated Glomerular Filt Rate > 60; Glucose 118 mg/dL (65-110); Potassium 3.5 mmol/L (3.4-5.0); Sodium 136 mmol/L (137-145)
[2023-12-06] MEDS: HYDROcodone/acetaminophen (*CRX) 10-325 MG TABLET 1 TAB PO (07:29)
[2023-12-06] MEDS: ONDANSETRON INJ 4 MG/2 ML VIAL IV PUSH (07:32)
[2023-12-06 08:00] VITALS: O2SAT 99
[2023-12-06] MEDS: ENOXAPARIN 40 MG/0.4 ML SYRINGE SUB-Q (08:27)
[2023-12-06 09:35] VITALS: BP 114/70; PULSE 71; RESP 20; TEMP 36.3; O2SAT 99
[2023-12-06 12:09] VITALS: BP 166/66; PULSE 81; RESP 20; TEMP 36.4; O2SAT 98
--- NOTE | 2023-12-06 14:24 | PM.DS ---
DS: Admitting Diagnosis Discharge Date 12/06/23 Admitting Diagnosis Acute appendicitis DS: Discharge Diagnosis Discharge Diagnosis (1) Acute perforated appendicitis: Code(s): K35.32 - Acute appendicitis with perforation, localized peritonitis, and gangrene, without abscess Status: Acute DS: Summary Hospital Course Reason for hospitalization: This is a 48-year-old man who presented to the emergency with right lower quadrant pain. In the emergency department he was noted to have an elevated white count and CT showed evidence of acute appendicitis. He was admitted in this setting. Hospital Course: He was started on IV antibiotics and decision was made to proceed with surgery. He underwent laparoscopic appendectomy by Dr. Neal and was found to have acute perforated appendicitis. Antibiotics were continued following surgery and he was observed overnight. His diet was advanced as tolerated. His white blood cell count was normal this morning. He has been afebrile for 24 hours after surgery. He is tolerating a diet and tolerating activity well. Postop incisional pain is well controlled. He had some mild nausea this morning that has resolved. The patient is stable for discharge today on oral antibiotics. Status at Discharge Functional status at discharge: independent ambulation Overall status at discharge: patient is progressing back to baseline Time Spent with Patient Time attestation: Total time spent providing and/or coordinating discharge services: Exam Const: General: comfortable and no acute distress GI: Inspection: non-distended and incision (incisions dry and intact) GI Palp: Yes Soft to palpation, Yes Tenderness to palpation present (GI) (incisional) and No Guarding due to palpation present (GI) Auscultation: normal bowel sounds Neuro: General: moves all extremities and no focal motor deficits Extrem: General: no calf tenderness and no edema Psych: Mental Status: mental status grossly normal Insight: Good insight present (Psych) DS: Data Data Completed and Pending Pending studies at discharge: Pending at discharge 12/05/23 14:10 Surgical [PTH] Routine Labs on day of discharge: Labs from last 24 hours 12/06/23 05:59 WBC 9.3 RBC 4.76 Hgb 14.3 D Hct 41.8 L MCV 87.8 MCH 30.0 MCHC 34.2 RDW 12.5 Plt Count 189 MPV 9.4 Sodium 136 L Potassium 3.5 Chloride 100 Carbon Dioxide 29 Anion Gap 7 BUN 8 L D Creatinine 0.90 Estim Creat Clear Calc 89 Estimated GFR > 60 Glucose 118 H Calcium 9.0 Procedures/Treatments: Procedures Operation Date: 12/05/23 15:00 Actual Procedure Side Surgeon p Laparoscopic Appendectomy Kee Neal, Imaging Radiologist's impression: ITS Impressions Abdomen/Pelvis CT 12/05/23 05:47 Impression: Acute appendicitis, as detailed above. No abscess or free air. Discharge Plan Discharge Attending physician on discharge: Kee Neal Discharging Clinician: Christelle Booth Anticipated Discharge Date/Time: 12/06/23 14:29 Patient Disposition: Home, Self-Care Activity: may shower, no straining, no driving and other - see discharge instructions Diet: as tolerated and regular Wound Care Instructions: incision open to air Discharge Instructions: DISCHARGE INSTRUCTION SHEET FOR HERNIA, GALLBLADDER AND APPENDIX SURGERIES DR. NEAL 1. May shower in 24 hours, no soaking in bath x 2weeks. 2. Call office for: Wound increasingly painful or bleeding Vomiting Fever of greater than 101 degrees 3. If no bowel movement for three days, take 1 oz. (30 ml) Milk of Magnesia or MiraLax 17g 1 to 2 times daily. 4. No heavy lifting > 10-15 pounds x 2 weeks for laparoscopic appendectomy. 5. No driving for 3 days or while taking narcotic pain medications. 6. Ice to surgical site for 48 hours (30 min on, then 30 min off).
[2023-12-06] MEDS: INFLUENZA TRIVALENT VACCINE 45 MCG/0.5 ML SYRINGE IM (14:51)
== END 2023-12-06 15:20 | disposition home or self-care (01) | DRG 399 ==
LOC: ANHED 02:57 → ANH3MEDSUR 03:45
PROVIDERS: Admitting Provider Surgery; Emergency Provider Emergency Medicine; PCP Family Medicine; Visit Provider Nurse Practitioner Family
PROC: 0DTJ4ZZ Resection of Appendix, Percutaneous Endoscopic Approach (ICD-10-PCS; CPT 44970; principal; 2023-12-05 15:00)
DX: K35.32 Acute appendicitis with perforation, localized peritonitis, and gangrene, without abscess (principal); Z23 Encounter for immunization; Z87.891 Personal history of nicotine dependence
CPT/HCPCS: 36415; 74177; 80048; 80053; 81003; 83605; 83690; 83735; 85025; 85027; 88304; 90471; 90656; 93005; 96361; 96374; 96375; 96376; 99285; A9270; G0008; J1100; J1171; J1650; J1741; J2003; J2250; J2270; J2405; J2543; J2704; J3010; J7030; J7120; Q9967

== ENCOUNTER 2024-01-07 07:12 | Outpatient (CLI) | payer BC, SELFPAY ==
[2024-01-07 23:29] LABS: Prostate Specific Antigen 0.9 ng/mL (< OR = 4.0)
== END 2024-01-07 07:13 | disposition home or self-care (01) ==
LOC: ANHBWCLAB 07:14
PROVIDERS: PCP Family Medicine; Visit Provider Family Medicine
DX: Z12.5 Encounter for screening for malignant neoplasm of prostate (principal); E29.1 Testicular hypofunction; Z79.899 Other long term (current) drug therapy
CPT/HCPCS: 36415; 84153; 84403; G0103

== ENCOUNTER 2024-07-24 07:05 | Outpatient (CLI) | payer BC, SELFPAY ==
[2024-07-24 20:29] LABS: Alanine Aminotransferase 37 U/L (6-50); Albumin Level 4.4 g/dL (3.5-5.1); Alkaline Phosphatase 67 U/L (38-126); Anion Gap 7 mmol/L (4-12); Aspartate Amino Transferase 52 U/L (17-59); Bilirubin,Total 0.7 mg/dL (0.2-1.3); Blood Urea Nitrogen 20 mg/dL (9-20); Carbon Dioxide 27 mmol/L (22-30); Chloride 103 mmol/L (98-107); Estimated Glomerular Filt Rate > 60; Glucose 88 mg/dL (65-110); Potassium 4.1 mmol/L (3.4-5.0); Sodium 137 mmol/L (137-145); Total Protein 7.2 g/dL (6.3-8.2)
[2024-07-24 20:34] LABS: Basophils Percent Auto 0.2 % (0.2-1.2); Eosinophils Absolute Auto 0.1 K/mm3 (0-0.3); Eosinophils Percent Auto 3.2 % (0-4.4); Hematocrit 50.2 % (42.0-52.0); Hemoglobin 16.6 g/dL (14.0-18.0); Lymphocytes Absolute Auto 0.83 K/mm3 (0.9-3.2); Lymphocytes Percent Auto 20.2 % (18.3-44.2); Mean Corpuscular HGB Conc 33.1 g/dl (32-36); Mean Corpuscular Volume 90.6 fl (80-100); Mean Platelet Volume 9.5 fl (7.4-10.4); Monocytes Absolute Auto 0.4 K/mm3 (0.1-0.6); Monocytes Percent Auto 10.7 % (2.6-8.5); Neutrophils Absolute Auto 2.7 K/mm3 (1.3-6.7); Neutrophils Percent Auto 65.7 % (45.5-73.1); Platelet Count Result 227 k/mm3 (150-375); Red Blood Count 5.54 M/mm3 (4.6-6.20); Red Cell Distribution Width 13.5 % (11.5-14.5); White Blood Count 4.1 K/mm3 (4.5-10.0)
[2024-07-29 18:58] LABS: Apolipoprotein B 102 mg/dL
== END 2024-07-24 07:06 | disposition home or self-care (01) ==
LOC: ANHBWCLAB 07:07
PROVIDERS: PCP Family Medicine; Visit Provider Family Medicine
DX: Z00.00 Encounter for general adult medical examination without abnormal findings (principal); Z12.5 Encounter for screening for malignant neoplasm of prostate; E29.1 Testicular hypofunction; G47.00 Insomnia, unspecified; R53.83 Other fatigue; Z79.899 Other long term (current) drug therapy
CPT/HCPCS: 36415; 80053; 82172; 82306; 82607; 84153; 85025; G0103